=== PATIENT | male | born 1975 | race Caucasian/White ===

== ENCOUNTER 2017-10-19 09:15 | Emergency (ER) | payer OTHER ==
[~2017-10-19] VITALS: Ht 180.3 cm; Wt 91.3 kg
[2017-10-19 09:22] VITALS: Ht 180.3 cm; Wt 91.3 kg
[2017-10-19] MEDS ORDERED: SODIUM CHLORIDE 0.9% 1000ML 1,000 ML IV STA (09:35)
[2017-10-19] MEDS ORDERED: ACETAMINOPHEN 500 MG TAB PO STA (09:35)
--- NOTE | 2017-10-19 10:02 | DIAGNOSTIC IMAGING REPORT ---
CHEST ONE VIEW PORTABLE CLINICAL HISTORY: Cough. Fever. COMPARISON STUDY: No previous studies for comparison. FINDINGS: Lung volumes are normal. Lungs are clear. No pneumothorax or pleural effusion is noted. Pulmonary vascularity is normal. Cardiomediastinal silhouette is normal. IMPRESSION: No acute cardiopulmonary findings. Electronically signed by: Washington Castro M.D. 10/19/2017 10:01 AM Dictated Date/Time: 10/19/2017 10:01 AM
[2017-10-19 10:13] LABS: BASO % 0.1 %; BASO ABS # 0.01 K/uL (0-0.2); HEMATOCRIT 40.5 % (42-52); IG# 0.02 K/uL (0.00-0.02); LYMPH % 7.6 %; LYMPH ABS # 0.58 K/uL (1.2-3.4); MEAN CELL VOLUME 87.5 fL (80-100); MEAN CORPUSCULAR HEMOGLOBIN 30.2 pg (25-34); MEAN CORPUSCULAR HGB CONC 34.6 g/dl (32-36); MEAN PLATELET VOLUME 11.4 fL (7.4-10.4); MONO % 13.9 %; MONO ABS # 1.06 K/uL (0.11-0.59); NEUT % 78.1 %; NEUT ABS # 5.94 K/uL (1.4-6.5); PLATELET COUNT 216 K/uL (130-400); RED CELL DISTRIBUTION WIDTH CV 12.5 % (11.5-14.5); RED CELL DISTRIBUTION WIDTH SD 39.9 fL (36.4-46.3); WHITE BLOOD COUNT 7.61 K/uL (4.8-10.8)
[2017-10-19 10:30] LABS: ALBUMIN 3.9 gm/dl (3.4-5.0); CALCIUM 8.8 mg/dl (8.5-10.1); CREATININE 1.36 mg/dl (0.60-1.40); POTASSIUM 3.6 mmol/L (3.5-5.1)
[2017-10-19 10:33] LABS: TOTAL PROTEIN 7.2 gm/dl (6.4-8.2)
[2017-10-19] MEDS ORDERED: IBUPROFEN 600 MG TAB PO STA (11:05)
[2017-10-19 11:15] LABS: INFLUENZA B ANTIGEN Neg for Influ B (NEG)
--- NOTE | 2017-10-19 11:17 | EMERGENCY ROOM VISIT NOTE ---
History Report prepared by Kaelyn: Donny Mckeon Under the Supervision of: Dr. Devaughn Eric M.D. First contact with patient: 09:33 Chief Complaint: FLU LIKE SX Stated Complaint: FEVER,NAUSEA,LOW ENERGY,COUGH History of Present Illness The patient is a 42 year old male who presents to the Emergency Room with complaints of a fever that began last night. His temperature in triage was recorded as 39.3 C. 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 Yesterday, the patient began to have a sudden onset of flu- like symptoms including fever, headache, and body aches. In the evening, he was attempting to urinate when he felt very lightheaded and collapsed to the ground. He denies any true loss of consciousness and any head trauma. He was able to drink some water and collect himself afterward. This has never happened to the patient before. Pt denies LOC, chills, diaphoresis, visual changes, neck pain, chest pain, breathing difficulties, nausea, vomiting, abdominal pain, back pain, melena, hematochezia, urinary symptoms, numbness, weakness, lymphadenopathy, rash, or other complaints. He did not take any Tylenol or Motrin today. Source of History: patient Onset: yesterday Position: other (Global) Symptom Intensity: 39.3 C Quality: other (Fever) Timing: waxes/wanes Associated Symptoms: + headache Note: He experienced an episode of lightheadedness last night. He is also having body aches. Review of Systems See HPI for pertinent positives and negatives. A total of ten systems were reviewed and were otherwise negative. Past Medical & Surgical Medical Problems: (1) No Known Active Medical Problems Family History Patient reports no known family medical history. Social History Smoking Status: Never Smoker Smokeless Tobacco Use: No Drug Use: none Marital Status: Housing Status: lives with family Occupation Status: employed Current/Historical Medications Scheduled Oseltamivir (Tamiflu), 75 MG PO BID Allergies Coded Allergies: No Known Allergies (Unverified , 10/19/17) Physical Exam Vital Signs Date Time Temp Pulse Resp B/P (MAP) Pulse Ox O2 Delivery O2 Flow Rate FiO2 10/19/17 11:55 39.0 101 18 122/68 96 Room Air 10/19/17 10:56 39.0 105 18 110/63 97 Room Air 10/19/17 09:30 72 18 116/68 93 10/19/17 09:22 39.3 69 16 100 Room Air Physical Exam GENERAL: Awake, alert, mildly ill appearing, no distress HEAD: Normocephalic, atraumatic. No edema. EYES: Normal conjunctiva. Sclera non-icteric. EARS: Right TM normal. Left TM normal. NOSE: Mild congestion. OROPHARYNX: Lips, tongue, and mucosa unremarkable. No erythema or exudate. NECK: Supple. No nuchal rigidity. FROM. No adenopathy. Negative jolt accentuation test. RESPIRATORY: CTA bilaterally. No wheezes rales or rhonchi. CARDIAC: Regular rate, normal rhythm. No murmurs. ABDOMEN: Soft, non distended. No tenderness to palpation. NEURO: Normal sensorium. SKIN: No rash or jaundice noted Medical Decision & Procedures ER Provider Diagnostic Interpretation: Radiology results as stated below per my review and radiologist interpretation: CHEST ONE VIEW PORTABLE CLINICAL HISTORY: Cough. Fever. COMPARISON STUDY: No previous studies for comparison. FINDINGS: Lung volumes are normal. Lungs are clear. No pneumothorax or pleural effusion is noted. Pulmonary vascularity is normal. Cardiomediastinal silhouette is normal. IMPRESSION: No acute cardiopulmonary findings. Electronically signed by: Washington Castro M.D. 10/19/2017 10:01 AM Dictated Date/Time: 10/19/2017 10:01 AM Laboratory Results 10/19/17 09:40 Red Blood Count 4.63, Mean Corpuscular Volume 87.5, Mean Corpuscular Hemoglobin 30.2, Mean Corpuscular Hemoglobin Concent 34.6, Mean Platelet Volume 11.4, Neutrophils (%) (Auto) 78.1, Lymphocytes (%) (Auto) 7.6, Monocytes (%) (Auto) 13.9, Eosinophils (%) (Auto) 0.0, Basophils (%) (Auto) 0.1, Neutrophils # (Auto ) 5.94, Lymphocytes # (Auto) 0.58, Monocytes # (Auto) 1.06, Eosinophils # (Auto ) 0.00, Basophils # (Auto) 0.01 10/19/17 09:40 Test 10/19/17 09:40 10/19/17 09:59 10/19/17 11:45 White Blood Count 7.61 K/uL (4.8-10.8) Red Blood Count 4.63 M/uL (4.7-6.1) Hemoglobin 14.0 g/dL (14.0-18.0) Hematocrit 40.5 % (42-52) Mean Corpuscular Volume 87.5 fL (80-100) Mean Corpuscular Hemoglobin 30.2 pg (25-34) Mean Corpuscular Hemoglobin Concent 34.6 g/dl (32-36) Platelet Count 216 K/uL (130-400) Mean Platelet Volume 11.4 fL (7.4-10.4) Neutrophils (%) (Auto) 78.1 % Lymphocytes (%) (Auto) 7.6 % Monocytes (%) (Auto) 13.9 % Eosinophils (%) (Auto) 0.0 % Basophils (%) (Auto) 0.1 % Neutrophils # (Auto) 5.94 K/uL (1.4-6.5) Lymphocytes # (Auto) 0.58 K/uL (1.2-3.4) Monocytes # (Auto) 1.06 K/uL (0.11-0.59) Eosinophils # (Auto) 0.00 K/uL (0-0.5) Basophils # (Auto) 0.01 K/uL (0-0.2) RDW Standard Deviation 39.9 fL (36.4-46.3) RDW Coefficient of Variation 12.5 % (11.5-14.5) Immature Granulocyte % (Auto) 0.3 % Immature Granulocyte # (Auto) 0.02 K/uL (0.00-0.02) Anion Gap 9.0 mmol/L (3-11) Est Creatinine Clear Calc Drug Dose 83.4 ml/min Estimated GFR () 74.9 Estimated GFR (Non- 64.6 BUN/Creatinine Ratio 7.7 (10-20) Calcium Level 8.8 mg/dl (8.5-10.1) Total Bilirubin 0.7 mg/dl (0.2-1) Direct Bilirubin 0.2 mg/dl (0-0.2) Aspartate Amino Transf (AST/SGOT) 12 U/L (15-37) Alanine Aminotransferase (ALT/SGPT) 21 U/L (12-78) Alkaline Phosphatase 85 U/L (45-117) Total Protein 7.2 gm/dl (6.4-8.2) Albumin 3.9 gm/dl (3.4-5.0) Influenza Type A Antigen POS for Influ A (NEG) Influenza Type B Antigen Neg for Influ B (NEG) Urine Color YELLOW Urine Appearance CLEAR (CLEAR) Urine pH 7.5 (4.5-7.5) Urine Specific Hawks 1.011 (1.000-1.030) Urine Protein NEG (NEG) Urine Glucose (UA) NEG (NEG) Urine Ketones NEG (NEG) Urine Occult Blood NEG (NEG) Urine Nitrite NEG (NEG) Urine Bilirubin NEG (NEG) Urine Urobilinogen NEG (NEG) Urine Leukocyte Esterase NEG (NEG) Laboratory results reviewed by me Medications Administered Medications (Trade) Dose Ordered Sig/Mark Route Start Time Stop Time Status Last Admin Dose Admin Sodium Chloride 1,000 ml @ 999 mls/hr Q1H1M STAT IV 10/19/17 09:35 10/19/17 10:35 DC 10/19/17 09:54 999 MLS/HR Acetaminophen (Tylenol Tab) 1,000 mg NOW STAT PO 10/19/17 09:35 10/19/17 09:36 DC 10/19/17 09:51 1,000 MG Ibuprofen (Motrin Tab) 600 mg NOW STAT PO 10/19/17 11:05 10/19/17 11:06 DC 10/19/17 11:15 600 MG Oseltamivir Phosphate (Tamiflu Cap) 75 mg NOW STAT PO 10/19/17 11:22 10/19/17 11:23 DC 10/19/17 11:28 75 MG ED Course 0933: The patient was evaluated in room A11B. A complete history and physical exam was performed. 0935: Ordered Tylenol Tab 1000 mg PO, Sodium Chloride 1000 ml @ 999 mls/hr IV 1105: Ordered Motrin Tab 600 mg PO 1122: Ordered Tamiflu Cap 75 mg PO 1156: I reevaluated the patient. Discussed results and discharge instructions: He verbalized understanding and agreement. The patient is ready for discharge. Medical Decision Triage Nursing notes reviewed. The patient's presentation and history were concerning for flu like symptoms. Etiologies such as viral syndrome, influenza, otitis, pharyngitis, pneumonia, urinary tract infection, sepsis, bacteremia, meningitis, as well as others were entertained. The patient was evaluated. He was febrile. He was exhibiting flulike symptoms. He had a benign abdomen. Chest x-ray performed and was negative. Blood work was unremarkable except for minimal hyponatremia. He was hydrated and given Tylenol. His fever was decreasing but was still elevated and Motrin was given. Flu testing positive. The patient was treated with Tamiflu.I gave my usual and customary discussion regarding this issue. By the evaluation outlined above other emergent etiologies such as those listed in the differential, as well as others, were deemed relatively unlikely. The patient was educated about the findings as listed above. All questions were answered and the patient was pleased with the treatment. Return instructions were outlined and the patient was discharged in stable condition. The patient does not currently have a primary physician but states that his children go to Dr. Fermin. He would like to follow up with him. The patient was referred to Dr Fermin for follow-up for a recheck of the current condition. Medication Reconcilliation Current Medication List: was personally reviewed by me Blood Pressure Screening Patient's blood pressure: Normal blood pressure Blood pressure disposition: Did not require urgent referral Impression Primary Impression: Influenza A Scribe Attestation The scribe's documentation has been prepared under my direction and personally reviewed by me in its entirety. I confirm that the note above accurately reflects all work, treatment, procedures, and medical decision making performed by me. Departure Information Dispostion Home / Self-Care Prescriptions Oseltamivir (Tamiflu) 75 Mg Cap 75 MG PO BID, #9 CAP Prov: Devaughn Eric MD 10/19/17 Referrals No Doctor, Assigned (PCP) Forms HOME CARE DOCUMENTATION FORM, IMPORTANT VISIT INFORMATION Patient Instructions My [facility] [employer] Additional Instructions Tamiflu 75 mg twice daily for a total of 5 days. First dose given in the Emergency Room. Review the package insert for all your medications. This is necessary as important health information is provided for your benefit and current care. Acetaminophen(Tylenol) may be used for fever or pain. Use 1000mg every six hours as needed. Avoid using more than 4000mg in a 24 hour period. (AND/OR) Ibuprofen(Motrin, Advil) may be used for fever or pain. Use 600mg every six hours as needed. Take with food. Avoid using more than 2400mg in a 24 hour period. Do not use 2400mg per day for more than three consecutive days without physician direction. Prolonged inappropriate use can lead to stomach upset or ulcers. Rest and drink plenty of fluids. Controlling your fever with Tylenol and Ibuprofen as above will make you feel better. Wash your hands after nose blowing, sneezing, or coughing. Most germs are spread through contact, therefore improper hygiene may result in your close contacts and loved ones becoming ill just like you. Return to the ER for severe headache, neck stiffness, chest pain, difficulty breathing, fevers, vomiting, worsening of your condition, or as needed. Follow up with your primary physician this week for a recheck of your current condition. Work Instructions Return To Work: 3 days
[2017-10-19] MEDS ORDERED: OSELTAMIVIR PHOSPHATE 75 MG CAP PO STA (11:22)
[2017-10-19] MEDS ORDERED: OSEL75CA12 PO (11:23)
[2017-10-19 11:55] VITALS: BP 122/68; PULSE 101; TEMP 39; O2SAT 96
== END 2017-10-19 11:58 | disposition home or self-care (01) ==
LOC: C.EDB 09:18 → C.EDA 11:58
DX: J10.1 Influenza due to other identified influenza virus with other respiratory manifestations (principal)